=== PATIENT | female | born 1965 | race Caucasian/White ===

== ENCOUNTER 2017-05-12 11:20 | Emergency (ER) | payer SELFPAY | END 2017-05-12 12:35 | disposition home or self-care (01) | LOC: ERS 11:20 | DX: J11.1 Influenza due to unidentified influenza virus with other respiratory manifestations (principal); I10 Essential (primary) hypertension; F17.210 Nicotine dependence, cigarettes, uncomplicated | CPT/HCPCS: 99283 ==

== ENCOUNTER 2018-12-13 16:00 | Outpatient (CLI) | payer OTHER ==
--- NOTE | 2018-12-13 16:41 | RAD ---
CERVICAL SPINE EIGHT VIEWS: 12/13/18 COMPARISON: None. HISTORY: Pain Findings: The open mouth odontoid view and Fuchs view demonstrate a normal appearing C1-2 articulation and dens respectively. The neutral lateral exam demonstrates normal vertebral body height and alignment withi n the cervical spine. There is mild disc space narrowing and mild anterior osteophyte formation at C3-4, C4-5, C5-6 and C6- 7. Flexion imaging demonstrates no significant anterolisthesis or retrolisthesis. No significant anterol isthesis or retrolisthesis noted on extension imaging either. Oblique imaging demonstrates mild osteo phyte encroachment on the right neural foramen at C6-7 and minimal osteophyte encroachment on the lef t neural foramina at C3-4 and C5-6. IMPRESSION: Cervical spine degenerative change as described above. POS: [facility]
== END 2018-12-13 16:01 | disposition home or self-care (01) ==
LOC: BICRAD 16:00
DX: M47.812 Spondylosis without myelopathy or radiculopathy, cervical region (principal)
CPT/HCPCS: 72052

== ENCOUNTER 2022-04-23 21:09 | Observation (INO) | payer OTHER, SELFPAY ==
[~2022-04-23 21:09] MED LIST: Iopamidol-370 76% 500 ML 1 ML ONE
[2022-04-23 21:41] LABS: #Basophils 0.1 thou/uL (0.0-0.2); #Eosinphils 0.1 thou/uL (0.0-0.7); #Lymphocytes 3.6 thou/uL (1.20-3.40); #Monocytes 0.7 thou/uL (0.11-0.59); %Basophils 0.9 % (0.0-1.0); %Eosinophils 1.3 % (0.0-10.0); %Lymphocytes 34.1 % (21.0-51.0); %Monocytes 6.2 % (0.0-10.0); %Neutrophils 57.4 % (42.0-75.0); Hemoglobin 15.2 g/dL (12.0-16.0); Mean Corpuscular HGB CONC 32.9 g/dL (32.0-36.0); Mean Corpuscular Hemoglobin 32.5 pg (27.0-31.0); Mean Corpuscular Volume 98.8 fl (78.0-98.0); Mean Platelet Volume 7.1 fL (7.4-10.4); Platelet Count 247 10x3/uL (130-400); RBC Distribution Width 11.7 % (11.5-14.5); Red Blood Cell (RBC) Count 4.68 mill/uL (4.20-5.40); White Blood Cell (WBC) Count 10.4 10x3/uL (4.8-10.8)
[2022-04-23 22:02] LABS: ALT (SGPT) 24 U/L (8-55); AST (SGOT) 18 U/L (5-34); Albumin 4.2 g/dL (3.5-5.0); Alkaline Phosphatase 70 U/L (40-110); Anion Gap 13 mmol/L (10-20); BUN (Urea Nitrogen) 12 mg/dL (9.8-20.1); Bilirubin, Total 0.3 mg/dL (0.2-1.2); Calc. Creatinine Clearance 0 mL/min (70-130); Calcium 9.2 mg/dL (7.8-10.44); Carbon Dioxide 26 mmol/L (22-29); Chloride 100 mmol/L (98-107); Estimated GFR 85; Glucose 103 mg/dL (70-105); Protein, Total 7.2 g/dL (6.0-8.3); Sodium 135 mmol/L (136-145)
[2022-04-23] MEDS ORDERED: Ipratropium/Albuterol 3 ML NEB ONE ×2 (22:08→22:09)
[2022-04-23] MEDS ORDERED: Dexamethasone 10 MG/ML VIAL ONE (22:08)
[2022-04-23 22:28] LABS: Magnesium 1.9 mg/dL (1.6-2.6)
[2022-04-24] MEDS ORDERED: Aspirin Chewable 81 MG TAB ONE (00:54)
[2022-04-24 01:49] LABS: Troponin I Less than 0.010 ng/mL (< 0.028)
[2022-04-24] MEDS ORDERED: Nitroglycerin 0.4 MG TAB (25 Tab Bottle) SL PRN (02:05)
[2022-04-24 02:38] VITALS: BMI 33.0
[2022-04-24 08:28] LABS: Troponin I Less than 0.010 ng/mL (< 0.028)
[2022-04-24] MEDS ORDERED: Aspirin 325 mg Enteric Coated Tablet PO SCH (09:00)
[2022-04-24] MEDS ORDERED: HYDROcodone/Acetaminophen 10/325 mg Tablet PO PRN (09:56)
[2022-04-24] MEDS ORDERED: Morphine ER 15 MG TAB PO PRN (09:56)
[2022-04-24] MEDS ORDERED: Cyclobenzaprine 10 MG TAB PO PRN (09:56)
[2022-04-24 12:17] VITALS: BP 110/63; TEMP 97.3
[2022-04-24] MEDS ORDERED: Gabapentin 300 MG CAP PO SCH (15:00)
[2022-04-25] MEDS ORDERED: Lisinopril 20 MG TAB PO SCH (09:00)
== END 2022-04-24 16:25 | disposition home or self-care (01) ==
LOC: ERS 21:09 → 2NO 04-24 00:37
PROVIDERS: ADMIT Internal Medicine; ATTEND Family Medicine
DX: R07.9 Chest pain, unspecified (principal); J44.9 Chronic obstructive pulmonary disease, unspecified; R06.00 Dyspnea, unspecified; I10 Essential (primary) hypertension; F17.210 Nicotine dependence, cigarettes, uncomplicated
CPT/HCPCS: 36415; 71045; 71275; 80053; 83735; 83880; 84484; 85025; 93005; 93306; 96372; 96374; G0378; J1100; J1650; J7620; Q9967; U0003; U0005